=== PATIENT | female | born 1995 | race African-American/Black ===

== ENCOUNTER 2020-03-31 16:00 | Inpatient (IN) | payer OTHER ==
[~2020-03-31] VITALS: Ht 175.3 cm; Wt 102.5 kg
[2020-04-01] MEDS ORDERED: DEXT 5%/LR + PITOCIN 20UNITS/L 1,000 ML IV SCH ×2 (08:57→10:24)
[2020-04-01] MEDS ORDERED: CARBOPROST TROMETHAMINE 250 MCG/ML AMPUL IM PRN (09:00)
[2020-04-01] MEDS ORDERED: METHYLERGONOVINE MALEATE 0.2 MG/ML IM PRN (09:00)
[2020-04-01] MEDS ORDERED: LIDOCAINE HCL 1% 20ML VIAL (Pyxis) INJ INFIL SCH (09:00)
[2020-04-01] MEDS ORDERED: BUTORPHANOL TARTRATE 2 MG/ML VIAL IV PRN (09:00)
[2020-04-01] MEDS ORDERED: MISOPROSTOL 200MCG TABLET RC SCH (09:00)
[2020-04-01] MEDS ORDERED: LACTATED RINGERS 1,000 ML IV SCH (09:15)
[2020-04-01 09:26] LABS: BASOPHILS % 0.9 % (0.0-2.0); EOSINOPHILS % 0.2 % (0.0-5.0); HEMATOCRIT. 37.2 % (36.0-48.0); HEMOGLOBIN. 12.4 g/dL (12.0-16.0); LYMPHOCYTES % 20.5 % (20.0-50.0); MEAN CORPUSCULAR HEMOGLOBIN 30.2 pg (28.0-32.0); MEAN PLATELET VOLUME 9.3 fl (7.4-10.4); MONOCYTES % 6.3 % (2.0-8.0); NEUTROPHILS % 72.1 % (40.0-76.0); PLATELET 380 x1000/uL (130-400); RED BLOOD CELL COUNT 4.09 mill/uL (4.2-5.4); RED CELL DISTRIBUTION WIDTH 13.9 % (11.6-14.6)
[2020-04-01 09:35] LABS: INR 0.9; PARTIAL THROMBOPLASTIN TIME 25.5 sec (23.4-31.0); PROTHROMBIN TIME 9.5 sec (9.6-11.0)
[2020-04-01] MEDS ORDERED: MINERAL OIL 30ML BOTTLE PO SCH (09:45)
[2020-04-01] MEDS ORDERED: LIDOCAINE HCL 1% 20ML VIAL (Pyxis) INJ ONE (09:56)
[2020-04-01] MEDS ORDERED: IBUPROFEN 400MG TABLET PO PRN (10:30)
[2020-04-01] MEDS ORDERED: BENZOCAINE/LANOLIN/ALOE VERA SPRAY TOP PRN (10:30)
[2020-04-01] MEDS ORDERED: RHO(D) IMMUNE GLOBULIN 300 MCG/SYR IM PRN (10:30)
[2020-04-01 12:30] VITALS: BP 108/51
[2020-04-01 13:15] VITALS: BP 105/53
[2020-04-01 16:00] VITALS: BP 103/54
[2020-04-01 18:04] LABS: CLARITY URINE CLOUDY (CLEAR); KETONES URINE 1+ (NEGATIVE); LEUKOCYTE ESTERASE URINE TRACE (NEGATIVE); NITRITE URINE NEGATIVE (NEGATIVE); OCCULT BLOOD URINE 3+ (NEGATIVE); PROTEIN URINE TRACE (NEGATIVE); UROBILINOGEN URINE 0.2 E.U./dL (0.2-1.0)
[2020-04-01 18:09] LABS: COLOR URINE DARK YELLOW (YELLOW)
[2020-04-01 20:20] VITALS: BP 108/55
[2020-04-02] MEDS: IBUPROFEN 800MG TABLET PO PRN ×2 (02:01→08:41)
[2020-04-02 04:20] VITALS: BP 97/50
[2020-04-02 07:25] LABS: BASOPHILS % 0.7 % (0.0-2.0); EOSINOPHILS % 0.5 % (0.0-5.0); HEMATOCRIT. 28.5 % (36.0-48.0); HEMOGLOBIN. 9.4 g/dL (12.0-16.0); LYMPHOCYTES % 23.9 % (20.0-50.0); MEAN CORPUSCULAR HEMOGLOBIN 30.1 pg (28.0-32.0); MEAN CORPUSCULAR VOLUME 91.3 fL (81.0-99.0); MEAN PLATELET VOLUME 8.3 fl (7.4-10.4); MONOCYTES % 9.1 % (2.0-8.0); NEUTROPHILS % 65.8 % (40.0-76.0); PLATELET 267 x1000/uL (130-400); RED BLOOD CELL COUNT 3.12 mill/uL (4.2-5.4); RED CELL DISTRIBUTION WIDTH 13.9 % (11.6-14.6)
[2020-04-02 07:42] VITALS: BP 102/62
== END 2020-04-02 13:45 | disposition home or self-care (01) | DRG 806 ==
LOC: 8 EST LDRP 04-01 08:04 → OBSVTOIN 04-01 08:04 → 8EST 04-01 12:30
PROVIDERS: ADMIT Obstetrics & Gynecology; ATTEND Obstetrics & Gynecology
PROC: 10E0XZZ Delivery of Products of Conception, External Approach (ICD-10-PCS; principal; 2020-04-01)
PROC: 0HQ9XZZ Repair Perineum Skin, External Approach (ICD-10-PCS; 2020-04-01)
DX: O99.12 Other diseases of the blood and blood-forming organs and certain disorders involving the immune mechanism complicating childbirth (principal); D62 Acute posthemorrhagic anemia; Z37.0 Single live birth; D72.829 Elevated white blood cell count, unspecified; O99.02 Anemia complicating childbirth; O70.0 First degree perineal laceration during delivery; O99.284 Endocrine, nutritional and metabolic diseases complicating childbirth; E28.2 Polycystic ovarian syndrome; Z3A.39 39 weeks gestation of pregnancy; O99.824 Streptococcus B carrier state complicating childbirth
CPT/HCPCS: 36415; 81003; 85025; 86592; 86703; 86850; 86900; 87340; 99281; J2590; J3490